=== PATIENT | female | born 1995 | race American Indian/Alaskan Native ===

== ENCOUNTER 2018-01-17 17:19 | Emergency (ER) | payer MEDICAID ==
[~2018-01-17] VITALS: Ht 162.6 cm; Wt 89.0 kg
[~2018-01-17 17:19] MED LIST: ACET-1008 PO; BACL10TA2 PO; BENZ1LOZ30 MM; NAPR-1144 PO
[2018-01-17 18:15] LABS: BASOPHILS % (AUTO) 0.6 % (0-1); EOSINOPHILS # (AUTO) 0.1 X10'3 (0-0.9); EOSINOPHILS % (AUTO) 1.7 % (0-6); HEMATOCRIT 35.3 % (35.0-45.0); HEMOGLOBIN 12.4 g/dl (12.0-16.0); LYMPHOCYTES # (AUTO) 1.6 X10'3 (1.1-4.8); LYMPHOCYTES % (AUTO) 17.8 % (21-51); MEAN CORPUSCULAR VOLUME 85.6 FL (78-98); MEAN PLATELET VOLUME 8.3 FL (7.4-10.4); MONOCYTES # (AUTO) 0.5 X10'3 (0-0.9); MONOCYTES % (AUTO) 5.4 % (2-12); NEUTROPHILS # (AUTO) 6.6 X10'3 (1.8-7.7); NEUTROPHILS % (AUTO) 74.5 % (42-75); PLATELET COUNT 337 X10'3 (140-440); RED BLOOD COUNT 4.12 X10'6 (4.20-5.60); RED CELL DISTRIBUTION WIDTH 13.4 % (11.5-14.5); WHITE BLOOD COUNT 8.9 X10'3 (4.5-11.0)
[2018-01-17 18:23] LABS: CLARITY,URINE SLIGHTLY CLOUDY (Clear); COLOR,URINE YELLOW (Yellow); GLUCOSE, URINE NEGATIVE (Neg); KETONES,URINE >=80 mg/dl (Neg); LEUKOCYTE ESTERASE ,URINE NEGATIVE (Neg); NITRITES, URINE NEGATIVE (Neg); OCCULT BLOOD,URINE NEGATIVE (Neg); PROTEIN,URINE NEGATIVE (Neg)
[2018-01-17 18:28] LABS: UA COLLECTION TYPE CLN CATCH MIDSTREAM
[2018-01-17 18:29] LABS: MUCUS STRANDS MANY /LPF (Neg); SQUAMOUS EPITHELIAL CELL,UR MANY /LPF (FEW)
[2018-01-17 18:30] LABS: BACTERIA,URINE 1+ /HPF (Neg); CAL OXALATE CRYSTALS 4+ /HPF (NEGATIVE)
[2018-01-17 18:31] LABS: RBC,URINE NONE SEEN /HPF (0-2); WBC,URINE 0-4 /HPF (0-4)
[2018-01-17 18:32] LABS: URINE HCG POSITIVE (NEG)
[2018-01-17 20:24] VITALS: BP 113/58
== END 2018-01-17 20:26 | disposition home or self-care (01) ==
LOC: ER 17:20
DX: O20.0 Threatened abortion (principal); J45.909 Unspecified asthma, uncomplicated; Z3A.10 10 weeks gestation of pregnancy; Z88.8 Allergy status to other drugs, medicaments and biological substances; Z79.899 Other long term (current) drug therapy
CPT/HCPCS: 36415; 76801; 81001; 81025; 84702; 85025; 86900; 86901; 99285